=== PATIENT | male | born 1970 | race African-American/Black ===

== ENCOUNTER 2021-12-19 19:32 | Emergency (ER) | payer MEDICAID ==
[~2021-12-19] VITALS: Ht 180.3 cm; Wt 77.0 kg
[2021-12-19 19:46] VITALS: BP 121/73
== END 2021-12-20 00:19 | disposition left against medical advice (07) ==
LOC: ER 19:32
DX: Z53.21 Procedure and treatment not carried out due to patient leaving prior to being seen by health care provider (principal); I25.10 Atherosclerotic heart disease of native coronary artery without angina pectoris; Z87.11 Personal history of peptic ulcer disease